=== PATIENT | male | born 1970 | race Caucasian/White ===

== ENCOUNTER 2016-10-25 22:34 | Emergency (ER) | payer OTHER ==
[~2016-10-25 22:34] MED LIST: ALD25 PO; CLARITIN10 MG PO; IND10 PO; LAC30L PO
[2016-10-26 02:52] VITALS: BP 120/75
== END 2016-10-26 02:53 | disposition home or self-care (01) ==
LOC: ED 22:34
DX: T78.3XXA Angioneurotic edema, initial encounter (principal); Y92.89 Other specified places as the place of occurrence of the external cause
CPT/HCPCS: J1200; J2930; J3490

== ENCOUNTER 2018-04-30 12:21 | Inpatient (IN) | payer OTHER ==
[~2018-04-30] VITALS: Ht 160 cm; Wt 102.7 kg
[2018-04-30 12:32] VITALS: Ht 160 cm; Wt 102.7 kg
[2018-04-30] MEDS ORDERED: NATURE'S BLEND F1 MG PO (12:58)
[2018-04-30] MEDS ORDERED: VITAMIN B121000 MCG (12:59)
[2018-04-30 14:26] LABS: BASOPHIL % 0.3 % (0-2); PLATELET COUNT 140 x10^3mcL (130-400)
[2018-04-30 14:30] LABS: RED CELL DISTRIBUTION WIDTH 15.1 % (11.5-14.5)
[2018-04-30 16:03] LABS: CARBON DIOXIDE 22.3 mmol/L (21-32); CREATININE SERUM 1.6 mg/dL (0.7-1.3); POTASSIUM SERUM 3.9 mmol/L (3.5-5.1)
[2018-04-30 16:15] LABS: ALBUMIN 2.5 g/dL (3.4-5.0); BILIRUBIN TOTAL 0.55 mg/dL (0.20-1.00); MAGNESIUM 2.2 mg/dL (1.8-2.4); T4(THYROXINE) 5.2 ug/dL (4.7-13.3); TOTAL PROTEIN, SERUM 6.3 g/dL (6.4-8.2)
[2018-04-30 16:45] LABS: microscopic required? NO
[2018-04-30 17:11] LABS: UA SPECIFIC GRAVITY 1.015 (1.005-1.035); urine erythrocyte NEGATIVE (NEGATIVE)
[2018-04-30 17:18] VITALS: BP 101/55
[2018-04-30 17:24] LABS: AMPHETAMINE QUAL UR NONE DETECTED (See below)
[2018-04-30 21:05] VITALS: BP 101/55
[2018-05-01 05:24] LABS: CALCIUM 7.2 mg/dL (8.5-10.1); CARBON DIOXIDE 25.3 mmol/L (21-32); CHLORIDE SERUM 111 mmol/L (98-107); CREATININE SERUM 0.9 mg/dL (0.7-1.3); GFR1 > 60 mL/min; GLUCOSE SERUM 143 mg/dL (74-106); POTASSIUM SERUM 4.8 mmol/L (3.5-5.1); SODIUM SERUM 143 mmol/L (136-145)
[2018-05-01 05:30] LABS: BASOPHIL % 0.3 % (0-2)
[2018-05-01 05:49] LABS: PLATELET COUNT 83 x10^3mcL (130-400); RED CELL DISTRIBUTION WIDTH 15.4 % (11.5-14.5)
[2018-05-01 07:50] VITALS: BP 117/59
[2018-05-01 11:00] VITALS: BP 132/56
[2018-05-01 16:20] VITALS: BP 97/57
[2018-05-01 18:04] VITALS: BP 101/50
[2018-05-01 21:40] VITALS: BP 112/57
[2018-05-02] VITALS (11 sets, daily range): BP systolic 94–128; BP diastolic 49–78
[2018-05-02 02:23] LABS: rbc morphology (normal/abnorm) ABNORMAL (NORMAL)
[2018-05-02 02:24] LABS: burr cell (echinocyte) 1+; target cell (codocyte) 1+
[2018-05-02 12:35] LABS: BASOPHIL % 0.4 % (0-2)
[2018-05-02 12:43] LABS: CALCIUM 7.4 mg/dL (8.5-10.1); CARBON DIOXIDE 29.4 mmol/L (21-32); CHLORIDE SERUM 109 mmol/L (98-107); CREATININE SERUM 0.8 mg/dL (0.7-1.3); GFR1 > 60 mL/min; GLUCOSE SERUM 105 mg/dL (74-106); POTASSIUM SERUM 4.2 mmol/L (3.5-5.1); SODIUM SERUM 143 mmol/L (136-145)
[2018-05-02 12:58] LABS: RED CELL DISTRIBUTION WIDTH 15.4 % (11.5-14.5)
[2018-05-02 13:00] LABS: PLATELET COUNT 39 x10^3mcL (130-400)
[2018-05-03 05:42] VITALS: BP 100/55
[2018-05-03 06:34] LABS: CALCIUM 7.1 mg/dL (8.5-10.1); CARBON DIOXIDE 26.1 mmol/L (21-32); CHLORIDE SERUM 110 mmol/L (98-107); CREATININE SERUM 0.7 mg/dL (0.7-1.3); GFR1 > 60 mL/min; GLUCOSE SERUM 91 mg/dL (74-106); SODIUM SERUM 141 mmol/L (136-145)
[2018-05-03 09:18] VITALS: BP 98/52
[2018-05-03 10:16] LABS: BASOPHIL % 0.6 % (0-2)
[2018-05-03 10:19] LABS: RED CELL DISTRIBUTION WIDTH 15.4 % (11.5-14.5)
[2018-05-03 10:20] LABS: PLATELET COUNT 43 x10^3mcL (130-400)
[2018-05-03 14:15] VITALS: BP 127/70
[2018-05-03 14:17] VITALS: BP 127/70
== END 2018-05-03 15:48 | disposition home or self-care (01) | DRG 279 ==
LOC: ED 12:21 → IC 15:08 → MU 05-01 16:51
PROVIDERS: Emergency Medicine; General Practice; Internal Medicine Gastroenterology
PROC: 30233N1 Transfusion of Nonautologous Red Blood Cells into Peripheral Vein, Percutaneous Approach (ICD-10-PCS; 2018-04-30)
PROC: 0DB68ZX Excision of Stomach, Via Natural or Artificial Opening Endoscopic, Diagnostic (ICD-10-PCS; principal; 2018-05-01 09:00)
PROC: 06L38CZ Occlusion of Esophageal Vein with Extraluminal Device, Via Natural or Artificial Opening Endoscopic (ICD-10-PCS; 2018-05-01 09:00)
DX: K72.90 Hepatic failure, unspecified without coma (principal); N17.0 Acute kidney failure with tubular necrosis; G92 Toxic encephalopathy; I85.11 Secondary esophageal varices with bleeding; E43 Unspecified severe protein-calorie malnutrition; I95.9 Hypotension, unspecified; D68.59 Other primary thrombophilia; E66.01 Morbid (severe) obesity due to excess calories; K76.6 Portal hypertension; K70.30 Alcoholic cirrhosis of liver without ascites; E83.51 Hypocalcemia; K31.89 Other diseases of stomach and duodenum; D50.0 Iron deficiency anemia secondary to blood loss (chronic); F10.20 Alcohol dependence, uncomplicated; F10.229 Alcohol dependence with intoxication, unspecified; F17.210 Nicotine dependence, cigarettes, uncomplicated; Y90.0 Blood alcohol level of less than 20 mg/100 ml; R74.0 Nonspecific elevation of levels of transaminase and lactic acid dehydrogenase [LDH]; Z68.35 Body mass index [BMI] 35.0-35.9, adult; Z80.8 Family history of malignant neoplasm of other organs or systems; Z91.19 Patient's noncompliance with other medical treatment and regimen
CPT/HCPCS: 43235; 82962; 83880; 99406; C9113; G0480; J1200; J1610; J1885; J2250; J2310; J2354; J2405; J3010; J3411; J3475; J3490; J7030; J7040; J7620; P9016; Q0092; Q0163

== ENCOUNTER 2019-01-06 21:10 | Inpatient (IN) | payer OTHER ==
[~2019-01-06] VITALS: Ht 160 cm; Wt 96.2 kg
[~2019-01-06 21:10] MED LIST changes: +NATURE'S BLEND F1 MG PO; +VITAMIN B121000 MCG
[2019-01-06 21:51] LABS: CALCIUM 7.7 mg/dL (8.5-10.1); CARBON DIOXIDE 23.6 mmol/L (21-32); CHLORIDE SERUM 109 mmol/L (98-107); CREATININE SERUM 0.7 mg/dL (0.7-1.3); GFR1 > 60 mL/min; GLUCOSE SERUM 110 mg/dL (74-106); POTASSIUM SERUM 4.2 mmol/L (3.5-5.1); SODIUM SERUM 140 mmol/L (136-145)
[2019-01-06 21:52] LABS: BASOPHIL % 0.6 % (0-2)
[2019-01-06 21:55] LABS: ALKALINE PHOSPHATASE 171 U/L (46-116); ALT/SGPT 24 U/L (16-63); AST/SGOT 22 U/L (15-37); BILIRUBIN TOTAL 0.42 mg/dL (0.20-1.00); PLATELET COUNT 76 x10^3mcL (130-400); RED CELL DISTRIBUTION WIDTH 20.5 % (11.5-14.5); TOTAL PROTEIN, SERUM 7.1 g/dL (6.4-8.2)
[2019-01-06 21:58] LABS: ALBUMIN 2.6 g/dL (3.4-5.0)
[2019-01-06 22:08] LABS: rbc morphology (normal/abnorm) ABNORMAL (NORMAL)
--- NOTE | 2019-01-06 22:30 | NUR ---
PT AAOX4, NO S/S OF DISTRESS NOTED, RESPIRATIONS EVEN AND UNLABORED. PT STATES HE WAS INSTRUCTED BY PRIMARY DR TO COME TO ED AFTER RECIEVING BLOOD RESULTS, PT STATES "MY BLOOD WAS LOW". PT REPORTS FEELING TIRED X 2 MONTHS AND DIZZINESS THAT STARTED TODAY. PT DENIES PAIN AT THIS TIME.
--- NOTE | 2019-01-06 22:46 | NUR ---
PT AMBULATED TO AND FROM RESTROOM WITH STEADY GAIT.
[2019-01-06] MEDS ORDERED: MASON NATURAL1000 IU PO (22:48)
[2019-01-06] MEDS ORDERED: PROPAFENONE HC150 MG PO (22:49)
[2019-01-06] MEDS ORDERED: URSODIOL300 MG PO (22:49)
[2019-01-06] MEDS ORDERED: PANTOPRAZOLE SO40 M1 PO (22:49)
--- NOTE | 2019-01-06 22:53 | NUR ---
REPORTS GIVEN TO MINA REHMAN TO ASSUME CARE OF PT.
--- NOTE | 2019-01-06 23:13 | NUR ---
PT SLEEPING IN BED, RESPIRATIONS EVEN AND UNLABORED, EASILY AROUSABLE.
--- NOTE | 2019-01-06 23:18 | NUR ---
[facility], CAME IN DUE TO LOW HEMOGLOBIN COUND AND WEAKNESS. AAOX4. DENIES HEADACHE/DIZZINESS. ABLE TO FOLLOW COMMANDS. NO SOB NOTED. DENIES CHEST PAIN/PRESSURE, SR ON THE MONITOR. PALE. DENIES ABDOMINAL DISCOMFORT/RECTAL BLEED. LAST BM TODAY, FORMED. ABDOMEN IS SOFT AND ROUND. VOIDS. DENIES URINARY BLEED. IV SITE ON THE LEFT WRIST IS PATENT AND INTACT. SIDE RAILS UPX2. CALL LIGHT ON REACH. PRIMARY NURSE ORI AT BEDSIDE FOR CONTINUITY OF CARE
[2019-01-06 23:21] LABS: microscopic required? NO
[2019-01-06 23:30] VITALS: BP 124/69
[2019-01-06 23:37] VITALS: Ht 160 cm; Wt 96.2 kg
[2019-01-06 23:41] LABS: UA SPECIFIC GRAVITY 1.015 (1.005-1.035); urine erythrocyte NEGATIVE (NEGATIVE)
[2019-01-06 23:51] LABS: MAGNESIUM 1.9 mg/dL (1.8-2.4)
[2019-01-06 23:56] LABS: AMPHETAMINE QUAL UR NONE DETECTED (See below)
[2019-01-07] VITALS (8 sets, daily range): BP systolic 97–114; BP diastolic 47–60
--- NOTE | 2019-01-07 | NUR ---
RECEIVED PT FROM ED, NO ACUTE DISTRESS. ORIENTED PT TO ROOM. BED IN LOWEST POSITION, SIDE RAILS UP X2, CALL LIGHT WITHIN REACH. WILL CONTINUE TO MONITOR.
[2019-01-07] MEDS ORDERED: PROPRANOLOL HCL40 MG PO (00:45)
--- NOTE | 2019-01-07 00:53 | NUR ---
BLOOD TRANSFUSION INITIATED, VITAL SIGNS STABLE. WILL CONTINUE TO MONITOR.
--- NOTE | 2019-01-07 01:07 | NUR ---
NO REACTION TO BLOOD TRANSFUSION NOTED AFTER 15 MIN, INFUSION RATE INCREASED. WILL CONTINUE TO MONITOR.
--- NOTE | 2019-01-07 04:05 | NUR ---
1ST UNIT OF PRBC TRANSFUSION COMPLETED, NO ADVERSE REACTION NOTED. 2ND UNIT FOR TRANSFUSION INITIATED. WILL CONTINUE TO MONITOR.
--- NOTE | 2019-01-07 04:19 | NUR ---
NO ADVERSE REACTION NOTED AFTER 15 MIN OF BLOOD TRANSFUSION, INFUSION RATE INCREASED. NO ACUTE DISTRESS. WILL CONTINUE TO MONITOR.
--- NOTE | 2019-01-07 06:29 | NUR ---
2ND BLOOD TRANSFUSION COMPLETED, NO ADVERSE REACTION NOTED, VITAL SIGNS STABLE. 3RD BLOOD TRANSFUSION INITIATED. PT SLEPT PERIODICALLY THROUGHOUT NIGHT, NO ACUTE DISTRESS. ALL NEEDS MET AND ATTENDED TO. NO SIGNIFICANT CHANGES. IV PATENT AND INTACT. BED IN LOWEST POSITION, SIDE RAILS UP X2, CALL LIGHT WITHIN REACH. WILL ENDORSE CARE TO ONCOMING NURSE.
--- NOTE | 2019-01-07 07:04 | NUR ---
RECEIVED REPORT FROM ORI RN. PATIENT RESTING COMFORTABLY ION BED WITH SULFATE DRIER MACHINE OPERATOR AT BEDSIDE CONDUCTING ABDOMINAL ULTRASOUND. IV TO LT WRIST IS PATENT AND INFUSING BLOOD @ 130 ML/HR. NO REDNESS OR PAIN. TELE # [address] PATIENT DENIES CHEST PAIN. PT ON ROOM AIR. NO C/O SOB AND NO DISTRESS NOTED. ALL QUESTIONS AND CONCERNS ADDRESSED.
--- NOTE | 2019-01-07 07:27 | NUR ---
CANCELLATION REQUESTED FOR ECHOCARDIOGRAM
--- NOTE | 2019-01-07 07:48 | NUR ---
ECHO IN TO SEE PATIENT.
[2019-01-07 08:46] LABS: PLATELET COUNT 70 x10^3mcL (130-400)
--- NOTE | 2019-01-07 08:48 | NUR ---
DR KELLY PAGED TO NOTIFY OF PATIENT WBC 2.0
--- NOTE | 2019-01-07 09:04 | NUR ---
BLOOD TRANSFUSION COMPLETE. POST TRANSFUSION VITALS TAKEN (SEE DOCUMENTATION). NO ADVERSE REACTIONS NOTED. PATIENT TOLERATED IT WELL.
--- NOTE | 2019-01-07 10:31 | NUR ---
NOTIFIED DR HE THAT PATIENT HAD AN EGD LAST MONTH AND THAT HE WOULD NOT LIKE ANOTHER TODAY. DR HE STATED THAT HE MAY RESUME PREVIOUS DIET AND IS CLEARED BY HIM FOR DISCHARGE TO NOTIFY THE RESIDENT.
--- NOTE | 2019-01-07 10:33 | NUR ---
DR KELLY NOTIFED OF PATIENT WBC 2.0 AND THAT HE HAS BEEN CLEARED BY DR YING ALVAREZ. PATIENT HAS APPOINTMENT WITH PRIMARY CARE DOCTOR TOMORROW.
[2019-01-07 11:18] LABS: PLATELET COUNT 69 x10^3mcL (130-400); RED CELL DISTRIBUTION WIDTH 23.8 % (11.5-14.5)
[2019-01-07 11:21] LABS: MONOCYTE 4 % (0-7); SEGMENTED NEUTROPHILS 87 % (37-75)
[2019-01-07 11:22] LABS: PLATELET MORPHOLOGY PLATELETS DECREASED; rbc morphology (normal/abnorm) ABNORMAL (NORMAL)
[2019-01-07 11:28] LABS: SEGMENTED NEUTROPHILS 87 % (37-75)
[2019-01-07 11:29] LABS: BAND NEUTROPHIL 0 % (0-10); MONOCYTE 4 % (0-7)
[2019-01-07 11:31] LABS: rbc morphology (normal/abnorm) ABNORMAL (NORMAL)
[2019-01-07 11:32] LABS: PLATELET MORPHOLOGY PLATELETS DECREASED
--- NOTE | 2019-01-07 15:38 | NUR ---
PT STABLE FOR DISCHARGE PER MD. DISCHARGE INSTRUCTIONS AND SUMMARY DISCUSSED WITH PATIENT. PATIENT VERBALIZED UNDERSTANDING AND AGREES TO FOLLOW UP WITH PRIMARY CARE DOCTOR AND REPORTS HAVING AN APPOINTMENT WITH SENIOR CLINICAL RESEARCH SCIENTIST TOMORROW. IV REMOVED AND IV POLE CLEARED. TELE MONITOR REMOVED AND DANIEL NOTIFIED. ID BANDS CUT. PT ESCORTED TO LOBBY.
== END 2019-01-07 15:42 | disposition home or self-care (01) | DRG 280 ==
LOC: ED 21:10 → DU 22:34
PROVIDERS: ADMIT General Practice
PROC: 30233N1 Transfusion of Nonautologous Red Blood Cells into Peripheral Vein, Percutaneous Approach (ICD-10-PCS; principal; 2019-01-07)
DX: K70.30 Alcoholic cirrhosis of liver without ascites (principal); E43 Unspecified severe protein-calorie malnutrition; I85.11 Secondary esophageal varices with bleeding; D61.818 Other pancytopenia; F17.210 Nicotine dependence, cigarettes, uncomplicated; E66.9 Obesity, unspecified; K21.9 Gastro-esophageal reflux disease without esophagitis; F10.21 Alcohol dependence, in remission; Z68.37 Body mass index [BMI] 37.0-37.9, adult; Z80.0 Family history of malignant neoplasm of digestive organs; Z80.59 Family history of malignant neoplasm of other urinary tract organ
CPT/HCPCS: C9113; G0378; G0480; J7050; P9016; Q0092; Q0163

== ENCOUNTER 2019-04-14 19:00 | Inpatient (IN) | payer OTHER ==
[~2019-04-14] VITALS: Ht 160 cm; Wt 77.1 kg
[~2019-04-14 19:00] MED LIST changes: +MASON NATURAL1000 IU PO; +PANTOPRAZOLE SO40 M1 PO; +PROPAFENONE HC150 MG PO; +PROPRANOLOL HCL40 MG PO; +URSODIOL300 MG PO
[2019-04-14 19:06] VITALS: Ht 160 cm; Wt 77.1 kg
--- NOTE | 2019-04-14 19:41 | NUR ---
PT PRESENTS TO ED C/O OF LUQ ABD PAIN, NAUSEA WITH PAIN FOR THE PAST 2 WEEKS. STATES PAIN WORSENIGN WHEN EATING FOOD. CURRENT PAIN IS 8/10. UPON PALPATION ABD IS ROUND AND FIRM. DENIES DIARRHEA AND CONSTIPATION. PT STATES HAS HISTORY OF LIVER PROBLEMS AND HAD THIS PROBLEM PREVIOUSLY. PT AO X4 AND SPEAKING CLEAR AND FULL SENTENCES. NAD AT THIS TIME. WAITING ON MSE
--- NOTE | 2019-04-14 20:20 | NUR ---
PT SKIN WNL. CAP REFILL IMMEDIATE. PT STILL AXO X4.
[2019-04-14 20:43] LABS: microscopic required? NO
[2019-04-14 20:49] LABS: urine erythrocyte NEGATIVE (NEGATIVE)
[2019-04-14 20:52] LABS: PLATELET COUNT 80 x10^3mcL (130-400); RED CELL DISTRIBUTION WIDTH 21.4 % (11.5-14.5)
--- NOTE | 2019-04-14 20:55 | NUR ---
MD FALLON AWARE OF PT CRITICAL HGB AND HCT. NEW ORDERS RECEIVED. AWAITING TYPE AND SCREEN AND WILL TRANSFUSE PT PER PROTOCOL.
[2019-04-14 21:04] LABS: CALCIUM 7.4 mg/dL (8.5-10.1); CARBON DIOXIDE 23.5 mmol/L (21-32); CHLORIDE SERUM 109 mmol/L (98-107); CREATININE SERUM 0.5 mg/dL (0.7-1.3); GFR1 > 60 mL/min; GLUCOSE SERUM 112 mg/dL (74-106); POTASSIUM SERUM 4.3 mmol/L (3.5-5.1); SODIUM SERUM 141 mmol/L (136-145)
[2019-04-14 21:08] LABS: ALKALINE PHOSPHATASE 187 U/L (46-116); ALT/SGPT 21 U/L (16-63); AST/SGOT 17 U/L (15-37); BILIRUBIN TOTAL 0.4 mg/dL (0.20-1.00); LIPASE 80 IU/L (73-393); TOTAL PROTEIN, SERUM 6.9 g/dL (6.4-8.2)
[2019-04-14 21:09] LABS: ALBUMIN 2.3 g/dL (3.4-5.0)
[2019-04-14 21:37] LABS: BAND NEUTROPHIL 2 % (0-10); METAMYELOCTE 1 % (0-2); MONOCYTE 11 % (0-7); SEGMENTED NEUTROPHILS 63 % (37-75); rbc morphology (normal/abnorm) ABNORMAL (NORMAL)
[2019-04-14 21:39] LABS: ovalocyte/elliptocyte 2+; tear drop cell (dacryocyte) 1+
--- NOTE | 2019-04-14 21:57 | NUR ---
LAB STATES BLOOD TO BE READY IN 30 MIN
--- NOTE | 2019-04-14 22:35 | NUR ---
BLOOD TYPE A POS STARTED AT THIS TIME AT 50ML/ HR. WILL STAY WITH PT TO WATCH FOR ANY ADVERSE REACTIONS.
--- NOTE | 2019-04-14 22:50 | NUR ---
BLOOD RATE CHANGED TO 100ML/HR PER MD FALLON TO INFUSE BEFORE THE 4 HOURS. PT RESTING COMOFORATBLE IN BED WITH E/U CHEST RISE NOTED. NO S/SX OF ADVERSE REACTIONS AT THISTIME. WILL CONTINUE TO MONITOR. PT IN PLAIN VIEW OF THE NURSES STATION WITH CURTAIN OPEN. CALL LIGHT WITHIN REACH
[2019-04-14] MEDS ORDERED: ACTIGALL300 MG PO (22:51)
[2019-04-14] MEDS ORDERED: PROPRANOLOL HCL10 MG PO (22:51)
[2019-04-14 23:54] VITALS: BP 103/55
--- NOTE | 2019-04-14 23:57 | NUR ---
RECEIVED PT FROM ED VIA [facility]. ORIENTED PT TO ROOM AND SURROUNDINGS. IV NOTED TO LAC,RAC PATENT AND INTACT. INSTRUCTED PT ON THE USE OF CALL LIGHT FOR ASSISTANCE. ENDORSED PT TO PRIMARY NURSE AMY
--- NOTE | 2019-04-15 00:19 | NUR ---
PT IS A/O x4. MED SURG. PULSES ARE PRESENT. NO EDEMA. LUNGS CLEAR IN ALL FEILDS. ON RA, DENIES ANY SOB. NO SIGN OF RESP DISTRESS. BOWEL SOUNDS PRESENT. ABD IS DISTENDED. SKIN IS INTACT. PT WAS RECIEVED FROM ED WITH A POSITIVE BLOOD, BLOOD TRANSFUSION RUNNING ON LAC AT 100ML/HR. PT DENIES ANY ADVERSE REACTIONS. BLOOD TRANSFUSION WAS RECHECKED WITH THE TRANSFUSION RECORD. CONSENT CONFIRMED IN PT CHART. DENIES ANY PAIN. SALINE LOCKED ON RAC. BED IS AT LOWEST SETTING. CALL LIGHT WITHIN REACH. WILL CONTINUE TO MONITOR.
--- NOTE | 2019-04-15 00:50 | NUR ---
RECIEVED ORDERS FORM MD GARCIA. WILL INPUT ORDERS. BLOOD TRANSFUSION INCREASED TO 120ML/HR.
--- NOTE | 2019-04-15 02:46 | NUR ---
FIRST UNIT OF PRBC WAS COMPLETED AT 0215. PT DENIES ANY ADVERSE REACTIONS. NONE WERE NOTED. VS: 98.2, 72 HR, 103/61 B/P, 24 RR, 97% ON RA. PT TOLERATED FIRST UNIT WELL. SECOND UNIT OF PRBC WAS STARTED AT 0240. INFORMATION CONFIRMATION WAS DONE AT BEDSIDE WITH MINA MUNIZ. WILL CONTINUE TO MONITOR PT.
--- NOTE | 2019-04-15 03:01 | NUR ---
PT TOLERATING SECOND UNIT OF PRBC WELL. NO ADVERSE REACTION NOTED. PT DENIES ANY ADVERSE REACTIONS. VS: 98.0, 69 PULSE, 101/60 B/P, RESP 20, 98% ON RA. IV INTACT AND PATENT. INFUSION INCREASED FROM 50ML/HR TO 110 ML/HR. WILL MONITOR PT.
[2019-04-15 04:48] VITALS: BP 101/65
--- NOTE | 2019-04-15 06:31 | NUR ---
BLOOD TRANSFUSION WAS COMPLETED AT 0547. NO ADVERSE REACTION WAS NOTED. PT DENIES ANY ADVERSE REACTIONS. VS: 97.6, 75 HR, 114/73, 21 RR, 98% ON RA. IV INTACT AND PATENT. NO ACUTE EVENT OCCURED AT NIGHT. BED IS AT LOWEST SETTING. CALL LIGHT WITHIN REACH. WILL ENDORSE TO AM NURSE.
[2019-04-15 08:14] LABS: PLATELET COUNT 71 x10^3mcL (130-400); RED CELL DISTRIBUTION WIDTH 22.4 % (11.5-14.5)
[2019-04-15 09:20] LABS: CALCIUM 7.5 mg/dL (8.5-10.1); CARBON DIOXIDE 25.4 mmol/L (21-32); CHLORIDE SERUM 109 mmol/L (98-107); CREATININE SERUM 0.5 mg/dL (0.7-1.3); GFR1 > 60 mL/min; GLUCOSE SERUM 94 mg/dL (74-106); POTASSIUM SERUM 4.3 mmol/L (3.5-5.1); SODIUM SERUM 141 mmol/L (136-145)
--- NOTE | 2019-04-15 09:32 | NUR ---
AT 0720 - RECEIVED PATIENT FROM NIGHT NURSE. AWAKE, ALERT AND ORIENTED. IV CURRENTLY SALINE LOCKED UNTIL POST-TRANSFUSION BLOOD DRAW IS COLLECTED. NO C/O PAIN. NPO FOR POSSIBLE PROCEDURE. AT 0735 - RECEIVED CALL FROM DR LONG WITH ORDERS TO CONSENT PATIENT FOR EGD. HE WILL SPEAK WITH PATIENT SHORTLY. AT 0745 - USING [employer] TELEPHONE STRIP STAMP STRAIGHTENER, PATIENT SIGNED CONSENT FOR EGD AND MODERATE SEDATION. AT 0755 - SEEN BY DR LONG. REPORT GIVEN TO NURSE IN GI LAB AT 0810 - PATIENT TAKEN TO GI LAB FOR EGD. AT 0818 - RECEIVED CALL FROM LABORATORY WITH WBC OF 2.1. DR LONG PER PHONE, NOTIFIED OF LOW WBC. NO CHANGE IN ORDERS.
--- NOTE | 2019-04-15 10:13 | NUR ---
PATIENT BACK IN ROOM FOLLOWING EGD UNDER MODERATE SEDATION. PATIENT IS AWAKE, ALERT AND ORIENTED. RESPIRATIONS REGULAR. ON ROOM AIR. IV INFUSION OF D5 1/2 NS RESUMED AT 80 ML/HR.
[2019-04-15 12:12] LABS: BAND NEUTROPHIL 0 % (0-10); BASOPHIL 0 % (0-2); MONOCYTE 9 % (0-7); SEGMENTED NEUTROPHILS 74 % (37-75)
[2019-04-15 12:13] LABS: ovalocyte/elliptocyte 1+; rbc morphology (normal/abnorm) ABNORMAL (NORMAL); tear drop cell (dacryocyte) 1+
--- NOTE | 2019-04-15 13:04 | NUR ---
SEEN BY DR GARCIA. DISCONTINUE IV FLUIDS. REPEAT H/H AT 1600. CALL DR GARCIA WITH RESULTS. POSSBILE DISCHARGE HOME TODAY IF H/F STABLE.
--- NOTE | 2019-04-15 13:37 | NUR ---
PAVANKatlin HAS EATEN LUNCH. TOLERATED REGULAR FOOD.
[2019-04-15 16:27] VITALS: BP 114/63; BP 114/638
--- NOTE | 2019-04-15 17:08 | NUR ---
RECEIVED CALL FROM LAB WITH H/H OF 6.8/; 6.9 ON REPEAT. CALL PALCED FOR DR GARCIA TO NOTIFY.
--- NOTE | 2019-04-15 19:26 | NUR ---
AT 1805 - DR LERMA PER PHONE. RECEIVED ORDERS TO TRANSFUSE 2 UNITS OF PRBC. REPEAT CBC AND BMP IN AM. PATIENT AWARE OF PLAN. AT 1920 - PATIENT RESTING QUIETLY. VSS. AFEBRILE. IV REMAINS SALINE LOCKED. NO C/O PAIN. TOLERATING REGULAR DIET. CARE ENDORSED TO NIGHT NURSE.
--- NOTE | 2019-04-15 19:30 | NUR ---
PT IS A/O x4. ON MED SURG. DENIES ANY CHEST PAIN OR PRESSURE. PULSES ARE PRESENT. NO EDEMA NOTED. LUNGS CLEAR IN ALL FEILDS. ON RA, DENIES ANY SOB. EQUAL CHEST RISE AND FALL. BOWEL SOUNDS PRESENT x4. ABD IS DISTENDED. DENIES ANY ABD PAIN OR DISTRESS. VOIDS FREELY. AMBULATES FREELY. SKIN IS WARM AND INTACT. SALINE LOCKED ON LAC AND RAC. DENIES ANY PAIN AT THIS TIME. EXPLAINED PT ABOUT BLOOD TRANSFUSION TONIGHT. EDUCATION PROVIEDED. ALL QUESTIONS AND CONCERNS WERE ADDRESSED. BED IS AT LOWEST SETTING. CALL LIGHT WITHIN REACH. WILL CONTINUE TO MONITOR.
--- NOTE | 2019-04-15 20:20 | NUR ---
STARTED BLOOD TRANSFUSION 1 UNIT OF PRBC AT 2014 AT 50ML/HR. PRE VS: 112/64, 98.6, 76 HR, 22 RR, AND 98% ON RA. WILL MONITOR PT.
[2019-04-15 20:28] VITALS: BP 120/64
--- NOTE | 2019-04-15 20:55 | NUR ---
PT IS TOLERATING TRANSFUSION WELL. DENIES ANY ADVERSE REACTION. NO REACTIONS NOTED. VS AT 2030 WERE: 98.3, 77 HR, 101/51, 22 RR, 97% ON RA. BLOOD RATE WAS INCREASED TO 120ML. WILL MONITOR PT.
--- NOTE | 2019-04-16 00:21 | NUR ---
FIRST UNIT OF BLOOD WAS COMPLETED AT 2340. NO ADVERSE REACTIONS NOTED. PT TOLERATED TRANSFUSION WELL. POST VS ARE: 98.1, 77 HR, 102/61, 21 RR, AND 98% ON RA. SECOND UNIT OF PRBC WAS STATED AT 0015. INFORMATION COMFIRMED WITH MINA WITT AT BEDSIDE. WILL CONITINUE TO MONITOR.
--- NOTE | 2019-04-16 03:37 | NUR ---
SECOND UNIT OF PRBC IS COMPLETED. PT TOLERATED WELL. NO ADVERSE REACTION NOTED. PT DENIES ANY ADVERSE REACTION. POST VS: 98.4, 75 HR, 117/66, 20 RESP, 98% ON RA. BLOOD DRAW IS SCHEDULE FOR THE AM. WILL CONTINUE TO MONITOR.
[2019-04-16 05:16] VITALS: BP 106/67
[2019-04-16 06:30] LABS: CALCIUM 7.6 mg/dL (8.5-10.1); CARBON DIOXIDE 22.5 mmol/L (21-32); CHLORIDE SERUM 107 mmol/L (98-107); CREATININE SERUM 0.5 mg/dL (0.7-1.3); GFR1 > 60 mL/min; GLUCOSE SERUM 91 mg/dL (74-106); POTASSIUM SERUM 4.1 mmol/L (3.5-5.1); SODIUM SERUM 138 mmol/L (136-145)
--- NOTE | 2019-04-16 06:34 | NUR ---
PT IS RESTING IN BED. DENIES ANY PAIN OR DISTRESS. NO ACUTE EVENT OCCURED AT NIGHT. BED IS AT LOWEST SETTING. CALL LIGHT WITHIN REACH. WILL ENDORSE TO AM NURSE.
[2019-04-16 07:05] LABS: PLATELET COUNT 77 x10^3mcL (130-400); RED CELL DISTRIBUTION WIDTH 24.1 % (11.5-14.5)
--- NOTE | 2019-04-16 08:06 | NUR ---
AT 0710 - RECEIVED PATIENT FROM NIGHT NURSE. AWAKE, ALERT AND ORIENTED. NO C/O PAIN. HAS RECEIVED BLOOD TRANSFUSION OF 2 UNITS PRBC OVERNIGHT. RECEIVED CALL FROM LAB WITH WBC OF 2.4 THIS IS UPWARD TREND OF YESTERDAY. AT 0735 - SITTING ON SIDE OF BED EATING BREAKFAST.
[2019-04-16 08:17] LABS: BAND NEUTROPHIL 0 % (0-10); BASOPHIL 0 % (0-2); MONOCYTE 1 % (0-7); SEGMENTED NEUTROPHILS 45 % (37-75)
[2019-04-16 08:18] LABS: rbc morphology (normal/abnorm) ABNORMAL (NORMAL)
[2019-04-16 08:19] LABS: PLATELET MORPHOLOGY PLATELETS DECREASED; target cell (codocyte) 1+
[2019-04-16 08:53] VITALS: BP 115/65
[2019-04-16 12:54] VITALS: BP 115/65
--- NOTE | 2019-04-16 12:54 | NUR ---
SEEN BY DR GARCIA. RECEIVED DISCHARGE ORDER.
[2019-04-16 13:29] VITALS: BP 115/65
--- NOTE | 2019-04-16 13:57 | NUR ---
PRINTED DISCHARGE INSTRUCTIONS GIVEN AND EXPLAINED TO PATIENT. PRESCRIPTION PROVIDED. PATIENT ALSO GIVEN PATIENT COPIES OF EGD PICTURES. ESOPHAGEAL VARICES PATIENT TEACHING PROVIDED IN [place]. IV CATHETER REMOVED INTACT. PREPARED FOR DISCHARGE.
--- NOTE | 2019-04-16 14:02 | NUR ---
DISCHARGED HOME WITH FRIEND. ESCORTED, AMBULATORY TO CAR BY [facility].
== END 2019-04-16 14:00 | disposition home or self-care (01) | DRG 663 ==
LOC: ED 19:00 → MU 23:13
PROVIDERS: Emergency Medicine; Internal Medicine; Internal Medicine Pulmonary Disease; ADMIT Internal Medicine Pulmonary Disease
PROC: 30233N1 Transfusion of Nonautologous Red Blood Cells into Peripheral Vein, Percutaneous Approach (ICD-10-PCS; 2019-04-14)
PROC: 0DJ08ZZ Inspection of Upper Intestinal Tract, Via Natural or Artificial Opening Endoscopic (ICD-10-PCS; principal; 2019-04-15 10:30)
DX: D50.0 Iron deficiency anemia secondary to blood loss (chronic) (principal); D61.818 Other pancytopenia; I85.10 Secondary esophageal varices without bleeding; K76.6 Portal hypertension; K70.30 Alcoholic cirrhosis of liver without ascites; K21.9 Gastro-esophageal reflux disease without esophagitis; K31.89 Other diseases of stomach and duodenum; K29.60 Other gastritis without bleeding; Z79.899 Other long term (current) drug therapy
CPT/HCPCS: 43235; C9113; G0378; J1200; J1610; J1885; J2250; J2310; J2405; J3010; J3490; J7030; J7050; P9016

== ENCOUNTER 2020-03-12 14:12 | Inpatient (IN) | payer OTHER ==
[~2020-03-12] VITALS: Ht 160 cm; Wt 97.1 kg
[~2020-03-12 14:12] MED LIST changes: +ACTIGALL300 MG PO; +PROPRANOLOL HCL10 MG PO
[2020-03-12 14:27] VITALS: Ht 160 cm; Wt 97.1 kg
[2020-03-12 16:08] LABS: BASOPHIL % 0.2 % (0-2)
[2020-03-12 16:14] LABS: microscopic required? YES; urine erythrocyte TRACE (NEGATIVE)
[2020-03-12 16:15] LABS: PLATELET COUNT 47 x10^3mcL (130-400)
[2020-03-12 16:19] LABS: CALCIUM 7.5 mg/dL (8.5-10.1); CARBON DIOXIDE 24.3 mmol/L (21-32); CHLORIDE SERUM 107 mmol/L (98-107); CREATININE SERUM 0.6 mg/dL (0.7-1.3); GFR1 > 60 mL/min; GLUCOSE SERUM 151 mg/dL (74-106); SODIUM SERUM 138 mmol/L (136-145)
[2020-03-12 16:27] LABS: AMPHETAMINE QUAL UR NONE DETECTED (See below)
[2020-03-12 16:31] LABS: ALBUMIN 2.2 g/dL (3.4-5.0); ALKALINE PHOSPHATASE 121 U/L (46-116); ALT/SGPT 40 U/L (16-63); AST/SGOT 39 U/L (15-37); BILIRUBIN TOTAL 0.26 mg/dL (0.20-1.00); CHOLESTEROL 124 mg/dL (<200); HDL CHOLESTEROL 20 mg/dL (40-60); LIPASE 58 IU/L (73-393); MAGNESIUM 1.7 mg/dL (1.8-2.4); T4(THYROXINE) 5.8 ug/dL (4.7-13.3); TOTAL PROTEIN, SERUM 6.1 g/dL (6.4-8.2)
[2020-03-12 19:18] VITALS: BP 129/78
[2020-03-12 21:05] VITALS: BP 110/65
[2020-03-13 05:40] VITALS: BP 110/61
[2020-03-13 07:47] LABS: ALBUMIN 2.3 g/dL (3.4-5.0); ALKALINE PHOSPHATASE 117 U/L (46-116); ALT/SGPT 42 U/L (16-63); AST/SGOT 39 U/L (15-37); BILIRUBIN TOTAL 0.2 mg/dL (0.20-1.00); CALCIUM 7.4 mg/dL (8.5-10.1); CHLORIDE SERUM 105 mmol/L (98-107); CREATININE SERUM 0.5 mg/dL (0.7-1.3); GFR1 > 60 mL/min; GLUCOSE SERUM 103 mg/dL (74-106); LIPASE 73 IU/L (73-393); POTASSIUM SERUM 4.2 mmol/L (3.5-5.1); SODIUM SERUM 137 mmol/L (136-145)
[2020-03-13 07:56] VITALS: BP 105/60
[2020-03-13 08:07] LABS: RED CELL DISTRIBUTION WIDTH 21.8 % (11.5-14.5)
[2020-03-13 08:09] LABS: PLATELET COUNT 46 x10^3mcL (130-400)
[2020-03-13 11:56] LABS: BAND NEUTROPHIL 2 % (0-10); MONOCYTE 6 % (0-7); SEGMENTED NEUTROPHILS 75 % (37-75); rbc morphology (normal/abnorm) ABNORMAL (NORMAL)
[2020-03-13 12:19] VITALS: BP 104/55
[2020-03-13 16:19] VITALS: BP 95/45
[2020-03-13 21:02] VITALS: BP 92/59
[2020-03-14 05:39] VITALS: BP 98/48
[2020-03-14 05:58] VITALS: BP 92/37
[2020-03-14 07:30] LABS: ALKALINE PHOSPHATASE 115 U/L (46-116); ALT/SGPT 49 U/L (16-63); AST/SGOT 62 U/L (15-37); BILIRUBIN TOTAL 0.25 mg/dL (0.20-1.00); CALCIUM 7.3 mg/dL (8.5-10.1); CARBON DIOXIDE 24.3 mmol/L (21-32); CHLORIDE SERUM 106 mmol/L (98-107); CREATININE SERUM 0.6 mg/dL (0.7-1.3); GFR1 > 60 mL/min; GLUCOSE SERUM 87 mg/dL (74-106); LIPASE 1249 IU/L (73-393); POTASSIUM SERUM 4.3 mmol/L (3.5-5.1); SODIUM SERUM 136 mmol/L (136-145)
[2020-03-14 07:51] LABS: ALBUMIN 2.1 g/dL (3.4-5.0); TOTAL PROTEIN, SERUM 5.7 g/dL (6.4-8.2)
[2020-03-14 08:59] VITALS: BP 92/43
[2020-03-14 09:09] LABS: RED CELL DISTRIBUTION WIDTH 21.4 % (11.5-14.5)
[2020-03-14 11:28] LABS: BAND NEUTROPHIL 1 % (0-10); MONOCYTE 7 % (0-7); SEGMENTED NEUTROPHILS 69 % (37-75); rbc morphology (normal/abnorm) ABNORMAL (NORMAL)
[2020-03-14 11:57] LABS: PLATELET COUNT 40 x10^3mcL (130-400)
[2020-03-14 12:57] VITALS: BP 100/55
[2020-03-14 17:20] VITALS: BP 96/50
[2020-03-14 19:24] VITALS: BP 105/53
[2020-03-15 06:19] VITALS: BP 101/57
[2020-03-15 07:09] LABS: ALKALINE PHOSPHATASE 121 U/L (46-116); ALT/SGPT 48 U/L (16-63); AST/SGOT 48 U/L (15-37); BILIRUBIN TOTAL 0.27 mg/dL (0.20-1.00); CALCIUM 7.4 mg/dL (8.5-10.1); CARBON DIOXIDE 26.9 mmol/L (21-32); CHLORIDE SERUM 103 mmol/L (98-107); CREATININE SERUM 0.5 mg/dL (0.7-1.3); GFR1 > 60 mL/min; GLUCOSE SERUM 121 mg/dL (74-106); LIPASE 180 IU/L (73-393); POTASSIUM SERUM 4.3 mmol/L (3.5-5.1); SODIUM SERUM 134 mmol/L (136-145)
[2020-03-15 07:15] LABS: ALBUMIN 2.1 g/dL (3.4-5.0); RED CELL DISTRIBUTION WIDTH 19.8 % (11.5-14.5)
[2020-03-15 07:16] LABS: PLATELET COUNT 45 x10^3mcL (130-400)
[2020-03-15 08:06] VITALS: BP 103/55
[2020-03-15 09:39] LABS: BAND NEUTROPHIL 1 % (0-10); MONOCYTE 4 % (0-7); SEGMENTED NEUTROPHILS 80 % (37-75); rbc morphology (normal/abnorm) ABNORMAL (NORMAL)
[2020-03-15] MEDS ORDERED: ALD25 PO (12:43)
[2020-03-15] MEDS ORDERED: LAC30L PO (12:44)
[2020-03-15 12:49] VITALS: BP 94/60
== END 2020-03-15 14:55 | disposition home or self-care (01) | DRG 137 ==
LOC: ED 14:12 → DU 16:52
PROVIDERS: Emergency Medicine; Hospitalist; ADMIT Hospitalist; ATTEND Hospitalist
DX: U07.1 COVID-19 (principal); D69.6 Thrombocytopenia, unspecified; K76.6 Portal hypertension; J12.89 Other viral pneumonia; D62 Acute posthemorrhagic anemia; K70.31 Alcoholic cirrhosis of liver with ascites; K92.2 Gastrointestinal hemorrhage, unspecified; K72.90 Hepatic failure, unspecified without coma; K21.9 Gastro-esophageal reflux disease without esophagitis; Z23 Encounter for immunization; Z68.37 Body mass index [BMI] 37.0-37.9, adult; Z79.899 Other long term (current) drug therapy
CPT/HCPCS: 83880; 85378; 90658; C9113; G0378; G0480; J2354; J2916; J3490; J7030; Q0092; U0003